=== PATIENT | female | born 1965 | race Caucasian/White ===

== ENCOUNTER 2017-11-07 10:08 | Day surgery (SDC) | payer BC ==
[~2017-11-07 10:08] MED LIST: Lactated Ringers 1,000 ML IV SCH; Midazolam 1 MG/ML 2 ML SDV ONE; Propofol 200 MG/20 ML SDV ONE; Sodium Chloride 0.9% 10 ML Syringe FLUSH PRN; Sodium Chloride 0.9% 2.5 ML Syringe FLUSH PRN; fentaNYL 100 MCG/2 ML SDV ONE
--- NOTE | 2017-11-07 11:02 | PCM.PREANE ---
Preanesthetic Assessment - Anesthesia/Transfusion/Family Hx Anesthesia History: Prior Anesthesia Without Reaction Family History of Anesthesia Reaction: No Transfusion History: No Prior Transfusion(s) - Review of Systems General: No Symptoms Pulmonary: No Symptoms Cardiovascular: No Symptoms Gastrointestinal: No Symptoms Neurological: No Symptoms Other: Reports: None - Physical Assessment NPO Status Date: 11/06/17 NPO Status Time: 21:00 O2 Sat by Pulse Oximetry: 99 Respiratory Rate: 16 Vital Signs: Last Vital Signs Temp 36.3 C 11/07/17 10:29 Pulse 70 11/07/17 10:29 Resp 16 11/07/17 10:29 BP 103/59 L 11/07/17 10:29 Pulse Ox 99 11/07/17 10:29 Height: 1.65 m Weight: 69.4 kg ASA Class: 2 Mental Status: Alert & Oriented x3 Airway Class: Mallampati = 1 Dentition: Reports: Normal Dentition ROM/Head Extension: Full Lungs: Clear to Auscultation, Normal Respiratory Effort Cardiovascular: Regular Rate, Regular Rhythm - Allergies Allergies/Adverse Reactions: Allergies Allergy/AdvReac Type Severity Reaction Status Date / Time Penicillins Allergy Cannot Verified 11/05/17 11:22 Remember - Anesthesia Plan Pre-Op Medication Ordered: None - Acknowledgements Anesthesia Type Planned: MAC Pt an Appropriate Candidate for the Planned Anesthesia: Yes Alternatives and Risks of Anesthesia Discussed w Pt/Guardian: Yes Pt/Guardian Understands and Agrees with Anesthesia Plan: Yes PreAnesthesia Questionnaire HEENT History: Reports: Allergic Rhinitis Musculoskeletal History: Reports: Fracture Other Musculoskeletal History: hx of fx right lower left/ ankle Neurological History: Reports: Other (See Below) Other Neuro History: hx of motion sickness Endocrine/Metabolic History: Reports: Hypothyroidism Hematologic History: Reports: B12 Deficiency - Past Surgical History Female Surgical History: Reports: Tubal Ligation, Other (See Below) Other Female Surgeries/Procedures: laser ablation of cervix - SUBSTANCE USE Smoking Status *Q: Never Smoker Recreational Drug Use History: No - HOME MEDS Home Medications: Home Meds Cetirizine HCl [Zyrtec] 10 mg PO DAILY 11/05/17 [History] Cyanocobalamin (Vitamin B-12) [B-12 Compliance] 1,000 mcg IM ASDIRECTED [History] Levothyroxine Sodium [Synthroid] 75 mcg PO DAILY 11/05/17 [History] Ofloxacin [Floxin 0.3% Otic Soln] 5 drop EARLF BID PRN 11/05/17 [History] - CURRENT (IN HOUSE) MEDS Current Meds: Current Medications Lactated Ringer's (Ringers, Lactated) 1,000 mls @ 125 mls/hr IV ASDIRECTED CARY Last Admin: 11/07/17 10:30 Dose: 125 mls/hr Sodium Chloride (Saline Flush) 10 ml FLUSH ASDIRECTED PRN PRN Reason: Keep Vein Open Sodium Chloride (Saline Flush) 2.5 ml FLUSH ASDIRECTED PRN PRN Reason: Keep Vein Open Sodium Chloride (Saline Flush) 10 ml FLUSH ASDIRECTED PRN PRN Reason: Keep Vein Open Sodium Chloride (Saline Flush) 2.5 ml FLUSH ASDIRECTED PRN PRN Reason: Keep Vein Open Discontinued Medications Fentanyl (Sublimaze) Confirm Administered Dose 100 mcg .ROUTE .STK-MED ONE Stop: 11/07/17 08:24 Midazolam HCl (Versed 1 Mg/Ml) Confirm Administered Dose 2 mg .ROUTE .STK-MED ONE Stop: 11/07/17 08:24 Propofol (Diprivan 20 Ml) Confirm Administered Dose 200 mg .ROUTE .STK-MED ONE Stop: 11/07/17 08:23
[2017-11-07] MEDS ORDERED: Propofol 200 MG/20 ML SDV ONE (11:33)
--- NOTE | 2017-11-07 11:53 | PCM.OPNOTE ---
- General Post-Op/Procedure Note Date of Surgery/Procedure: 11/07/17 Operative Procedure(s): Screening colonoscopy Findings: Mild diverticulosis Pre Op Diagnosis: Screening colonoscopy Post-Op Diagnosis: diverticulosis Anesthesia Technique: MAC Primary Surgeon: Regla Mueller Condition: Good
--- NOTE | 2017-11-07 12:20 | PCM.POSTAN ---
POST ANESTHESIA ASSESSMENT - MENTAL STATUS Mental Status: Alert, Oriented - RESPIRATORY Respiratory Status: Respiratory Rate WNL, Airway Patent, O2 Saturation Stable - CARDIOVASCULAR CV Status: Pulse Rate WNL, Blood Pressure Stable - GASTROINTESTINAL GI Status: No Symptoms - POST OP HYDRATION Hydration Status: Adequate & Stable
--- NOTE | 2017-11-07 12:21 | PCM48HPAN ---
Post Anesthesia Note - EVALUATION WITHIN 48HRS OF ANESTHETIC Vital Signs in Normal Range: Yes Patient Participated in Evaluation: Yes Respiratory Function Stable: Yes Airway Patent: Yes Cardiovascular Function Stable: Yes Hydration Status Stable: Yes Pain Control Satisfactory: Yes Nausea and Vomiting Control Satisfactory: Yes Mental Status Recovered: Yes
--- NOTE | 2017-11-07 16:52 | OR ---
SURGEON: JIMMY HALL MD DATE OF PROCEDURE: 11/07/2017 PREOPERATIVE DIAGNOSIS: Screening colonoscopy. POSTOPERATIVE DIAGNOSIS: Diverticulosis. PROCEDURE PERFORMED: Screening colonoscopy. ANESTHESIA: MAC. INSTRUMENT USED: Olympus colonoscope. EXTENT OF EXAM: To the cecum. PREPARATION: Good. LIMITATIONS: None. INDICATION FOR EXAMINATION: The patient is a 52-year-old female, who presents for first time screening colonoscopy. We discussed the procedure as well as expected perioperative course. We discussed the risks, including bleeding, infection, and/or perforation. The patient verbalized understanding and wished to proceed. PROCEDURE IN DETAIL: The patient was brought to the endoscopy suite and placed in a left lateral decubitus position. A time-out was completed verifying the patient's name, age, date of , allergies, and procedure to be performed. Monitored anesthesia care was induced and continuous oxygen was provided via nasal cannula throughout the procedure. After adequate sedation was achieved, a digital rectal exam was performed. This exam was within normal limits. A well lubricated colonoscope was inserted in the rectum and advanced under direct visualization to the level of cecum. This was somewhat difficult as the patient had a very redundant colon and significant looping during the case. A photograph was taken of the cecal cap as well as with the scope in the retroflexed position. The scope was then fully withdrawn while examining the color, texture, integrity, and anatomy of the mucosa from the cecum to the anal canal. The patient was noted to have very mild diverticulosis within the sigmoid colon. The scope was then brought into the rectum and retroflexed to allow visualization of the anal canal opening. This appeared normal, a photograph was taken. The scope was then straightened out and removed from the patient. The cecum to anus time was 7 minutes. The patient tolerated the procedure well and taken to PACU in stable condition. ENDOSCOPIC DIAGNOSIS: Diverticulosis. RECOMMENDATIONS: Follow up in clinic in 2 weeks. SIERRA BETH /[id number]
== END 2017-11-07 12:15 | disposition home or self-care (01) ==
LOC: MW.SDS 10:08
PROVIDERS: ATTEND Surgery
DX: Z12.11 Encounter for screening for malignant neoplasm of colon (principal); E03.9 Hypothyroidism, unspecified; H92.02 Otalgia, left ear; E53.8 Deficiency of other specified B group vitamins; K57.30 Diverticulosis of large intestine without perforation or abscess without bleeding; J32.9 Chronic sinusitis, unspecified; Z88.0 Allergy status to penicillin; Z79.899 Other long term (current) drug therapy; Z98.51 Tubal ligation status; Z98.890 Other specified postprocedural states
CPT/HCPCS: 45378; 81025; J2250; J3010; J7120; 00810; J2704

== ENCOUNTER 2018-01-25 15:54 | Day surgery (SDC) | payer BC ==
[2018-01-25] MEDS ORDERED: Sodium Chloride 0.9% 2.5 ML Syringe FLUSH PRN ×2 (16:19→19:40)
[2018-01-25] MEDS ORDERED: Sodium Chloride 0.9% 10 ML Syringe FLUSH PRN ×2 (16:19→19:40)
[2018-01-25] MEDS ORDERED: Morphine 2 MG/ML Syringe IVPUSH ONE ×2 (16:21→18:45)
[2018-01-25] MEDS ORDERED: Ondansetron 4 MG/2 ML SDV IVPUSH ONE (16:21)
--- NOTE | 2018-01-25 16:23 | EDM.PDOC ---
ED HPI GENERAL MEDICAL PROBLEM - General Chief Complaint: Abdominal Pain Stated Complaint: ABD PAIN Time Seen by Provider: 01/25/18 16:21 Source of Information: Reports: Patient History Limitations: Reports: No Limitations - History of Present Illness INITIAL COMMENTS - FREE TEXT/NARRATIVE: HISTORY AND PHYSICAL: []52-year-old female presenting with abdominal pain left upper quadrant History of Present Illness: []Patient states the pain started at 5:00 this morning and has continued. Patient has some nausea no vomiting no diarrhea She's not having menstrual cycle since October. Patient had crackers early this morning nothing to eat or drink since before noon. Review of Systems: As per history of present illness and below otherwise all systems reviewed and negative. Past medical history: As per history of present illness and as reviewed below otherwise noncontributory. Surgical history: As per history of present illness and as reviewed below otherwise noncontributory. Social history: No reported history of drug or alcohol abuse. Family history: As per history of present illness and as reviewed below otherwise noncontributory. Physical exam: Alert and oriented female answering questions appropriately in full sentences without any shortness of breath HEENT: Atraumatic, normocehpalic, pupils reactive, negative for conjunctival pallor or scleral icterus, mucous membranes moist, throat clear, neck supple, nontender, trachea midline. Lungs: Clear to auscultation, breath sounds equal bilaterally, chest non tender. Heart: S1S2, regular, negative for clicks, rubs, or JVD. Abdomen: Soft, nondistended, nontender. Negative for masses or hepatossplenmegaly. Negative for costovertebral tenderness. Pelvis: Stable nontender. Genitourinary: Deferred. Rectal: Deferred Extremities: Atraumatic, negative for cords or calf pain. Neurovascular unremarkable. Neuro: Awake, alert, oriented. Cranial nerves II through XII unremarkable. Cerebellum unremarkable. Motor and sensory unremarkable throughout. Exam nonfocal. Discussed patient with Dr. Caceres who will come in and see the patient. [address] Dr. Caceres is here to see the patient Diagnostics: [CBC CMP amylase and lipase Abdominal CT with contrast] Therapeutics: [IV normal saline Zofran Morphine] Impression: [Appendicitis] Plan: [Admit to Dr. Caceres] Definitive disposition and diagnosis as appropriate pending reevaluation and review of above. Onset: Today, Sudden Duration: Hour(s):, Getting Worse Location: Reports: Abdomen Quality: Reports: Throbbing Severity: Moderate Improves with: Reports: None Worsens with: Reports: None upper adomen Pain Score (Numeric/FACES): 8 - Related Data Allergies Allergy/AdvReac Type Severity Reaction Status Date / Time Penicillins Allergy Cannot Verified 01/25/18 16:02 Remember Home Meds: Home Meds Cetirizine HCl [Zyrtec] 10 mg PO DAILY 11/05/17 [History] Cyanocobalamin (Vitamin B-12) [B-12 Compliance] 1,000 mcg IM ASDIRECTED [History] Levothyroxine Sodium [Synthroid] 75 mcg PO DAILY 11/05/17 [History] Ofloxacin [Floxin 0.3% Otic Soln] 5 drop EARLF BID PRN 11/05/17 [History] Past Medical History - Past Health History Medical/Surgical History: Denies Medical/Surgical History HEENT History: Reports: Allergic Rhinitis Musculoskeletal History: Reports: Fracture Other Musculoskeletal History: hx of fx right lower left/ ankle Neurological History: Reports: Other (See Below) Other Neuro History: hx of motion sickness Endocrine/Metabolic History: Reports: Hypothyroidism Hematologic History: Reports: B12 Deficiency - Past Surgical History GI Surgical History: Reports: Colonoscopy Female Surgical History: Reports: Tubal Ligation, Other (See Below) Other Female Surgeries/Procedures: laser ablation of cervix Social & Family History - Family History Family Medical History: Noncontributory - Tobacco Use Smoking Status *Q: Never Smoker Second Hand Smoke Exposure: No - Caffeine Use Caffeine Use: Reports: Coffee - Recreational Drug Use Recreational Drug Use: No Drug Use in Last 12 Months: No ED ROS GENERAL - Review of Systems Review Of Systems: ROS reveals no pertinent complaints other than HPI. ED EXAM, GI/ABD - Physical Exam Exam: See Below (See dictation) Course - Vital Signs Last Recorded V/S: Last Vital Signs Temp 36.9 C 01/25/18 18:00 Pulse 69 01/25/18 18:59 Resp 16 01/25/18 18:59 BP 104/56 L 01/25/18 18:59 Pulse Ox 97 01/25/18 18:59 - Orders/Labs/Meds Orders: Active Orders 24 hr Category Date Time Status Patient Status [ADT] Routine ADT 01/25/18 19:40 Active Antiembolic Devices [RC] PER UNIT ROUTINE Care 01/25/18 19:41 Active Verify Patient Consent Obtain [RC] ASDIRECTED Care 01/25/18 19:40 Active Abdomen Pelvis w Cont [CT] Stat Exams 01/25/18 16:20 Taken Lactated Ringers [Ringers, Lactated] 1,000 ml Med 01/25/18 18:50 Active IV .BOLUS Lactated Ringers [Ringers, Lactated] 1,000 ml Med 01/25/18 19:45 Active IV ASDIRECTED Levofloxacin/Dextrose 5%-Water [Levaquin in D5W 750 MG/ Med 01/25/18 19:41 Active 150 ML] 750 mg Premix Bag 1 bag IV ONETIME Sodium Chloride 0.9% [Normal Saline] 500 ml Med 01/25/18 16:45 Active IV STAT Sodium Chloride 0.9% [Saline Flush] Med 01/25/18 16:19 Active 10 ml FLUSH ASDIRECTED PRN Sodium Chloride 0.9% [Saline Flush] Med 01/25/18 19:40 Active 10 ml FLUSH ASDIRECTED PRN Sodium Chloride 0.9% [Saline Flush] Med 01/25/18 16:19 Active 2.5 ml FLUSH ASDIRECTED PRN Sodium Chloride 0.9% [Saline Flush] Med 01/25/18 19:40 Active 2.5 ml FLUSH ASDIRECTED PRN metroNIDAZOLE/Normal Saline [Flagyl 500 MG in NS 100 ML Med 01/25/18 19:41 Active ] 500 mg Premix Bag 1 bag IV ONETIME Peripheral IV Insertion Adult [OM.PC] Routine Oth 01/25/18 19:40 Ordered Saline Lock Insert [OM.PC] Stat Oth 01/25/18 16:19 Ordered Sequential Compression Device [OM.PC] Routine Oth 01/25/18 19:40 Ordered Resuscitation Status Routine Resus Stat 01/25/18 19:40 Ordered Medication Orders Sodium Chloride (Normal Saline) 500 mls @ 999 mls/hr IV STAT CARY Last Admin: 01/25/18 16:52 Dose: 999 mls/hr Lactated Ringer's (Ringers, Lactated) 1,000 mls @ 999 mls/hr IV .BOLUS ONE Stop: 01/25/18 19:50 Last Admin: 01/25/18 18:54 Dose: 999 mls/hr Lactated Ringer's (Ringers, Lactated) 1,000 mls @ 125 mls/hr IV ASDIRECTED CARY Levofloxacin/Dextrose 750 mg/ (Premix) 150 mls @ 100 mls/hr IV ONETIME ONE Stop: 01/25/18 21:10 Metronidazole 500 mg/ Premix 100 mls @ 100 mls/hr IV ONETIME ONE Stop: 01/25/18 20:40 Last Admin: 01/25/18 19:46 Dose: 100 mls/hr Sodium Chloride (Saline Flush) 10 ml FLUSH ASDIRECTED PRN PRN Reason: Keep Vein Open Sodium Chloride (Saline Flush) 2.5 ml FLUSH ASDIRECTED PRN PRN Reason: Keep Vein Open Sodium Chloride (Saline Flush) 10 ml FLUSH ASDIRECTED PRN PRN Reason: Keep Vein Open Sodium Chloride (Saline Flush) 2.5 ml FLUSH ASDIRECTED PRN PRN Reason: Keep Vein Open Labs: Laboratory Tests 01/25/18 01/25/18 01/25/18 Range/Units 16:55 16:55 18:05 WBC 15.85 H (4.0-11.0) K/uL RBC 4.49 (4.30-5.90) M/uL Hgb 13.9 (12.0-16.0) g/dL Hct 41.0 (36.0-46.0) % MCV 91.3 (80.0-98.0) fL MCH 31.0 (27.0-32.0) pg MCHC 33.9 (31.0-37.0) g/dL RDW Std Deviation 43.8 (28.0-62.0) fl RDW Coeff of Pierre 13 (11.0-15.0) % Plt Count 303 (150-400) K/uL MPV 10.50 (7.40-12.00) fL Neut % (Auto) 92.6 H (48.0-80.0) % Lymph % (Auto) 4.0 L (16.0-40.0) % [place] % (Auto) 3.3 (0.0-15.0) % Eos % (Auto) 0.0 (0.0-7.0) % Baso % (Auto) 0.1 (0.0-1.5) % Neut # (Auto) 14.7 H (1.4-5.7) K/uL Lymph # (Auto) 0.6 (0.6-2.4) K/uL [place] # (Auto) 0.5 (0.0-0.8) K/uL Eos # (Auto) 0.0 (0.0-0.7) K/uL Baso # (Auto) 0.0 (0.0-0.1) K/uL Nucleated RBC % 0.0 /100WBC Nucleated RBCs # 0 K/uL Sodium 136 (136-146) mmol/L Potassium 4.2 (3.5-5.1) mmol/L Chloride 102 (98-110) mmol/L Carbon Dioxide 24 (21-31) mmol/L BUN 13 (6.0-23.0) mg/dL Creatinine 0.7 (0.6-1.5) mg/dL Est Cr Clr Drug Dosing 85.56 mL/min Estimated GFR (MDRD) > 60.0 ml/min Glucose 103 (60-110) mg/dL Calcium 9.5 (8.8-10.8) mg/dL Total Bilirubin 0.5 (0.1-1.5) mg/dL AST 16 (5-40) IU/L ALT 16 (8-54) IU/L Alkaline Phosphatase 61 (40-150) Total Protein 7.5 (6.0-8.0) g/dL Albumin 4.6 (3.5-5.0) g/dL Globulin 2.9 (2.0-3.5) g/dL Albumin/Globulin Ratio 1.6 (1.3-2.8) Amylase 53 (10-90) U/L Lipase 13 (7-80) U/L Urine Color YELLOW Urine Appearance SLT CLOUDY Urine pH 7.0 (5.0-8.0) Ur Specific [place] 1.020 (1.001-1.035) Urine Protein NEGATIVE (NEGATIVE) mg/dL Urine Glucose (UA) NEGATIVE (NEGATIVE) mg/dL Urine Ketones >=80 (NEGATIVE) mg/dL Urine Occult Blood NEGATIVE (NEGATIVE) Urine Nitrite NEGATIVE (NEGATIVE) Urine Bilirubin NEGATIVE (NEGATIVE) Urine Urobilinogen 0.2 (<2.0) EU/dL Ur Leukocyte Esterase NEGATIVE (NEGATIVE) Urine RBC 0-3 (0-2/HPF) Urine WBC 1-3 (0-5/HPF) Ur Epithelial Cells OCCASIONAL (NONE-FEW) Amorphous Sediment MODERATE (NEGATIVE) Urine Bacteria FEW (NEGATIVE) Urine Mucus RARE (NONE-MOD) Urine HCG, Qual (NEGATIVE) 01/25/18 Range/Units 18:05 WBC (4.0-11.0) K/uL RBC (4.30-5.90) M/uL Hgb (12.0-16.0) g/dL Hct (36.0-46.0) % MCV (80.0-98.0) fL MCH (27.0-32.0) pg MCHC (31.0-37.0) g/dL RDW Std Deviation (28.0-62.0) fl RDW Coeff of Pierre (11.0-15.0) % Plt Count (150-400) K/uL MPV (7.40-12.00) fL Neut % (Auto) (48.0-80.0) % Lymph % (Auto) (16.0-40.0) % [place] % (Auto) (0.0-15.0) % Eos % (Auto) (0.0-7.0) % Baso % (Auto) (0.0-1.5) % Neut # (Auto) (1.4-5.7) K/uL Lymph # (Auto) (0.6-2.4) K/uL [place] # (Auto) (0.0-0.8) K/uL Eos # (Auto) (0.0-0.7) K/uL Baso # (Auto) (0.0-0.1) K/uL Nucleated RBC % /100WBC Nucleated RBCs # K/uL Sodium (136-146) mmol/L Potassium (3.5-5.1) mmol/L Chloride (98-110) mmol/L Carbon Dioxide (21-31) mmol/L BUN (6.0-23.0) mg/dL Creatinine (0.6-1.5) mg/dL Est Cr Clr Drug Dosing mL/min Estimated GFR (MDRD) ml/min Glucose (60-110) mg/dL Calcium (8.8-10.8) mg/dL Total Bilirubin (0.1-1.5) mg/dL AST (5-40) IU/L ALT (8-54) IU/L Alkaline Phosphatase (40-150) Total Protein (6.0-8.0) g/dL Albumin (3.5-5.0) g/dL Globulin (2.0-3.5) g/dL Albumin/Globulin Ratio (1.3-2.8) Amylase (10-90) U/L Lipase (7-80) U/L Urine Color Urine Appearance Urine pH (5.0-8.0) Ur Specific [place] (1.001-1.035) Urine Protein (NEGATIVE) mg/dL Urine Glucose (UA) (NEGATIVE) mg/dL Urine Ketones (NEGATIVE) mg/dL Urine Occult Blood (NEGATIVE) Urine Nitrite (NEGATIVE) Urine Bilirubin (NEGATIVE) Urine Urobilinogen (<2.0) EU/dL Ur Leukocyte Esterase (NEGATIVE) Urine RBC (0-2/HPF) Urine WBC (0-5/HPF) Ur Epithelial Cells (NONE-FEW) Amorphous Sediment (NEGATIVE) Urine Bacteria (NEGATIVE) Urine Mucus (NONE-MOD) Urine HCG, Qual NEGATIVE (NEGATIVE) Meds: Medications Generic Name Dose Route Start Last Admin Trade Name Freq PRN Reason Stop Dose Admin Sodium Chloride 500 mls @ 999 mls/hr 01/25/18 16:45 01/25/18 16:52 Normal Saline IV 999 mls/hr STAT CARY Administration Lactated Ringer's 1,000 mls @ 999 mls/hr 01/25/18 18:50 01/25/18 18:54 Ringers, Lactated IV 01/25/18 19:50 999 mls/hr .BOLUS ONE Administration Lactated Ringer's 1,000 mls @ 125 mls/hr 01/25/18 19:45 Ringers, Lactated IV ASDIRECTED CARY Levofloxacin/Dextrose 750 mg/ 150 mls @ 100 mls/hr 01/25/18 19:41 Premix IV 01/25/18 21:10 ONETIME ONE Metronidazole 500 mg/ Premix 100 mls @ 100 mls/hr 01/25/18 19:41 01/25/18 19: 46 IV 01/25/18 20:40 100 mls/hr ONETIME ONE Administration Sodium Chloride 10 ml 01/25/18 16:19 Saline Flush FLUSH ASDIRECTED PRN Keep Vein Open Sodium Chloride 2.5 ml 01/25/18 16:19 Saline Flush FLUSH ASDIRECTED PRN Keep Vein Open Sodium Chloride 10 ml 01/25/18 19:40 Saline Flush FLUSH ASDIRECTED PRN Keep Vein Open Sodium Chloride 2.5 ml 01/25/18 19:40 Saline Flush FLUSH ASDIRECTED PRN Keep Vein Open Discontinued Medications Generic Name Dose Route Start Last Admin Trade Name Emiliano PRN Reason Stop Dose Admin Dexamethasone Confirm 01/25/18 19:34 Dexamethasone Administered 01/25/18 19:35 Dose 20 mg .ROUTE .STK-MED ONE Diphenhydramine HCl Confirm 01/25/18 19:34 Benadryl Administered 01/25/18 19:35 Dose 50 mg .ROUTE .STK-MED ONE Fentanyl Confirm 01/25/18 19:34 Sublimaze Administered 01/25/18 19:35 Dose 250 mcg .ROUTE .STK-MED ONE Hydromorphone HCl Confirm 01/25/18 19:35 Dilaudid Administered 01/25/18 19:36 Dose 2 mg .ROUTE .STK-MED ONE Iopamidol 86 ml 01/25/18 18:08 01/25/18 18:09 Isovue-370 (76%) IVPUSH 01/25/18 18:09 86 ml ONETIME STA Administration Midazolam HCl Confirm 01/25/18 19:34 Versed 1 Mg/Ml Administered 01/25/18 19:35 Dose 2 mg .ROUTE .STK-MED ONE Morphine Sulfate 2 mg 01/25/18 16:21 01/25/18 16:51 Morphine IVPUSH 01/25/18 16:22 2 mg ONETIME ONE Administration Morphine Sulfate 2 mg 01/25/18 18:45 01/25/18 18:54 Morphine IVPUSH 01/25/18 18:46 2 mg ONETIME ONE Administration Ondansetron HCl 4 mg 01/25/18 16:21 01/25/18 16:51 Zofran IVPUSH 01/25/18 16:22 4 mg ONETIME ONE Administration Ondansetron HCl Confirm 01/25/18 19:34 Zofran Administered 01/25/18 19:35 Dose 4 mg .ROUTE .STK-MED ONE Propofol Confirm 01/25/18 19:34 Diprivan 20 Ml Administered 01/25/18 19:35 Dose 200 mg .ROUTE .STK-MED ONE Rocuronium [place] Confirm 01/25/18 19:34 Zemuron Administered 01/25/18 19:35 Dose 100 mg .ROUTE .STK-MED ONE Succinylcholine Chloride Confirm 01/25/18 19:34 Succinylcholine In Ns Pf Administered 01/25/18 19:35 Dose 200 mg .ROUTE .STK-MED ONE Departure - Departure Time of Disposition: 19:49 Disposition: Refer to Observation Condition: Fair Clinical Impression: Retrocecal appendicitis - Discharge Information - My Orders Last 24 Hours: My Active Orders 01/25/18 16:19 Sodium Chloride 0.9% [Saline Flush] 10 ml FLUSH ASDIRECTED PRN Sodium Chloride 0.9% [Saline Flush] 2.5 ml FLUSH ASDIRECTED PRN Saline Lock Insert [OM.PC] Stat 01/25/18 16:20 Abdomen Pelvis w Cont [CT] Stat 01/25/18 16:45 Sodium Chloride 0.9% [Normal Saline] 500 ml IV STAT 01/25/18 18:50 Lactated Ringers [Ringers, Lactated] 1,000 ml IV .BOLUS - Assessment/Plan Last 24 Hours: My Active Orders 01/25/18 16:19 Sodium Chloride 0.9% [Saline Flush] 10 ml FLUSH ASDIRECTED PRN Sodium Chloride 0.9% [Saline Flush] 2.5 ml FLUSH ASDIRECTED PRN Saline Lock Insert [OM.PC] Stat 01/25/18 16:20 Abdomen Pelvis w Cont [CT] Stat 01/25/18 16:45 Sodium Chloride 0.9% [Normal Saline] 500 ml IV STAT 01/25/18 18:50 Lactated Ringers [Ringers, Lactated] 1,000 ml IV .BOLUS
[2018-01-25] MEDS ORDERED: Sodium Chloride 0.9% 500 ML IV SCH (16:45)
[2018-01-25 17:32] LABS: CHLORIDE,CL 102 mmol/L (98-110); SODIUM,NA 136 mmol/L (136-146)
[2018-01-25] MEDS ORDERED: Iopamidol 755 Mg/ML 100 ML Bottle IVPUSH STA (18:08)
[2018-01-25] MEDS ORDERED: Lactated Ringers 1,000 ML IV ONE (18:50)
[2018-01-25] MEDS ORDERED: Ondansetron 4 MG/2 ML SDV ONE (19:34)
[2018-01-25] MEDS ORDERED: fentaNYL 250 MCG/5 ML SDV ONE (19:34)
[2018-01-25] MEDS ORDERED: Rocuronium 10 MG/ML 10 ML Syringe ONE (19:34)
[2018-01-25] MEDS ORDERED: diphenhydrAMINE 50 MG/ML SDV ONE (19:34)
[2018-01-25] MEDS ORDERED: Propofol 200 MG/20 ML SDV ONE (19:34)
[2018-01-25] MEDS ORDERED: Succinylcholine/Normal Saline 200 MG/10 ML Syringe ONE (19:34)
[2018-01-25] MEDS ORDERED: Midazolam 1 MG/ML 2 ML SDV ONE (19:34)
[2018-01-25] MEDS ORDERED: Dexamethasone 4 MG/ML 5 ML MDV ONE (19:34)
[2018-01-25] MEDS ORDERED: HYDROmorphone 2 MG/ML SDV ONE (19:35)
[2018-01-25] MEDS ORDERED: metroNIDAZOLE/Normal Saline 500 MG in Premix Bag 1 BAG IV ONE (19:41)
[2018-01-25] MEDS ORDERED: Levofloxacin/Dextrose 5%-Water 750 MG in Premix Bag 1 BAG IV ONE (19:41)
[2018-01-25] MEDS ORDERED: Lactated Ringers 1,000 ML IV SCH (19:45)
--- NOTE | 2018-01-25 19:46 | PCM.HP ---
H&P History of Present Illness - General Date of Service: 01/25/18 Admit Problem/Dx: Admission Diagnosis/Problem Admission Diagnosis/Problem Appendicitis Source of Information: Patient History Limitations: Reports: No Limitations - History of Present Illness Initial Comments - Free Text/Narative: Patient is a 52 year old female who presents with generalized abdominal pain starting this morning around 5 am. This was associated with diaphoresis, nausea and vomiting. She has no appetite. The pain radiates to her back. She presented to the ER. She had a WBC of 15K with a left shift. A CT of the abdomen pelvis revealed a retrocecal and inflamed appendix. upper adomen Pain Score (Numeric/FACES): 8 - Related Data Allergies/Adverse Reactions: Allergies Allergy/AdvReac Type Severity Reaction Status Date / Time Penicillins Allergy Cannot Verified 01/25/18 16:02 Remember Home Medications: Home Meds Cetirizine HCl [Zyrtec] 10 mg PO DAILY 11/05/17 [History] Cyanocobalamin (Vitamin B-12) [B-12 Compliance] 1,000 mcg IM ASDIRECTED [History] Levothyroxine Sodium [Synthroid] 75 mcg PO DAILY 11/05/17 [History] Ofloxacin [Floxin 0.3% Otic Soln] 5 drop EARLF BID PRN 11/05/17 [History] Past Medical History - Past Health History Medical/Surgical History: Denies Medical/Surgical History HEENT History: Reports: Allergic Rhinitis Musculoskeletal History: Reports: Fracture Other Musculoskeletal History: hx of fx right lower left/ ankle Neurological History: Reports: Other (See Below) Other Neuro History: hx of motion sickness Endocrine/Metabolic History: Reports: Hypothyroidism Hematologic History: Reports: B12 Deficiency - Past Surgical History GI Surgical History: Reports: Colonoscopy Female Surgical History: Reports: Tubal Ligation, Other (See Below) Other Female Surgeries/Procedures: laser ablation of cervix Social & Family History - Family History Family Medical History: Noncontributory - Tobacco Use Smoking Status *Q: Never Smoker Second Hand Smoke Exposure: No - Caffeine Use Caffeine Use: Reports: Coffee - Recreational Drug Use Recreational Drug Use: No Drug Use in Last 12 Months: No H&P Review of Systems - Review of Systems: Review Of Systems: ROS reveals no pertinent complaints other than HPI. Exam - Exam Exam: See Below - Vital Signs Vital Signs: Last Vital Signs Temp 36.9 C 01/25/18 18:00 Pulse 69 01/25/18 18:59 Resp 16 01/25/18 18:59 BP 104/56 L 01/25/18 18:59 Pulse Ox 97 01/25/18 18:59 Weight: 71 kg - Exam General: Alert, Severe Distress HEENT: Conjunctiva Clear Neck: Supple Lungs: Clear to Auscultation, Normal Respiratory Effort Cardiovascular: Regular Rate, Regular Rhythm GI/Abdominal Exam: Soft, No Distention, No Mass, Guarding (in RLQ), Tender (RLQ) - Patient Data Lab Results Last 24 hrs: Laboratory Results - last 24 hr 01/25/18 01/25/18 01/25/18 Range/Units 16:55 16:55 18:05 WBC 15.85 H (4.0-11.0) K/uL RBC 4.49 (4.30-5.90) M/uL Hgb 13.9 (12.0-16.0) g/dL Hct 41.0 (36.0-46.0) % MCV 91.3 (80.0-98.0) fL MCH 31.0 (27.0-32.0) pg MCHC 33.9 (31.0-37.0) g/dL RDW Std Deviation 43.8 (28.0-62.0) fl RDW Coeff of Pierre 13 (11.0-15.0) % Plt Count 303 (150-400) K/uL MPV 10.50 (7.40-12.00) fL Neut % (Auto) 92.6 H (48.0-80.0) % Lymph % (Auto) 4.0 L (16.0-40.0) % [place] % (Auto) 3.3 (0.0-15.0) % Eos % (Auto) 0.0 (0.0-7.0) % Baso % (Auto) 0.1 (0.0-1.5) % Neut # (Auto) 14.7 H (1.4-5.7) K/uL Lymph # (Auto) 0.6 (0.6-2.4) K/uL [place] # (Auto) 0.5 (0.0-0.8) K/uL Eos # (Auto) 0.0 (0.0-0.7) K/uL Baso # (Auto) 0.0 (0.0-0.1) K/uL Nucleated RBC % 0.0 /100WBC Nucleated RBCs # 0 K/uL Sodium 136 (136-146) mmol/L Potassium 4.2 (3.5-5.1) mmol/L Chloride 102 (98-110) mmol/L Carbon Dioxide 24 (21-31) mmol/L BUN 13 (6.0-23.0) mg/dL Creatinine 0.7 (0.6-1.5) mg/dL Est Cr Clr Drug Dosing 85.56 mL/min Estimated GFR (MDRD) > 60.0 ml/min Glucose 103 (60-110) mg/dL Calcium 9.5 (8.8-10.8) mg/dL Total Bilirubin 0.5 (0.1-1.5) mg/dL AST 16 (5-40) IU/L ALT 16 (8-54) IU/L Alkaline Phosphatase 61 (40-150) Total Protein 7.5 (6.0-8.0) g/dL Albumin 4.6 (3.5-5.0) g/dL Globulin 2.9 (2.0-3.5) g/dL Albumin/Globulin Ratio 1.6 (1.3-2.8) Amylase 53 (10-90) U/L Lipase 13 (7-80) U/L Urine Color YELLOW Urine Appearance SLT CLOUDY Urine pH 7.0 (5.0-8.0) Ur Specific [place] 1.020 (1.001-1.035) Urine Protein NEGATIVE (NEGATIVE) mg/dL Urine Glucose (UA) NEGATIVE (NEGATIVE) mg/dL Urine Ketones >=80 (NEGATIVE) mg/dL Urine Occult Blood NEGATIVE (NEGATIVE) Urine Nitrite NEGATIVE (NEGATIVE) Urine Bilirubin NEGATIVE (NEGATIVE) Urine Urobilinogen 0.2 (<2.0) EU/dL Ur Leukocyte Esterase NEGATIVE (NEGATIVE) Urine RBC 0-3 (0-2/HPF) Urine WBC 1-3 (0-5/HPF) Ur Epithelial Cells OCCASIONAL (NONE-FEW) Amorphous Sediment MODERATE (NEGATIVE) Urine Bacteria FEW (NEGATIVE) Urine Mucus RARE (NONE-MOD) Urine HCG, Qual (NEGATIVE) 01/25/18 Range/Units 18:05 WBC (4.0-11.0) K/uL RBC (4.30-5.90) M/uL Hgb (12.0-16.0) g/dL Hct (36.0-46.0) % MCV (80.0-98.0) fL MCH (27.0-32.0) pg MCHC (31.0-37.0) g/dL RDW Std Deviation (28.0-62.0) fl RDW Coeff of Pierre (11.0-15.0) % Plt Count (150-400) K/uL MPV (7.40-12.00) fL Neut % (Auto) (48.0-80.0) % Lymph % (Auto) (16.0-40.0) % [place] % (Auto) (0.0-15.0) % Eos % (Auto) (0.0-7.0) % Baso % (Auto) (0.0-1.5) % Neut # (Auto) (1.4-5.7) K/uL Lymph # (Auto) (0.6-2.4) K/uL [place] # (Auto) (0.0-0.8) K/uL Eos # (Auto) (0.0-0.7) K/uL Baso # (Auto) (0.0-0.1) K/uL Nucleated RBC % /100WBC Nucleated RBCs # K/uL Sodium (136-146) mmol/L Potassium (3.5-5.1) mmol/L Chloride (98-110) mmol/L Carbon Dioxide (21-31) mmol/L BUN (6.0-23.0) mg/dL Creatinine (0.6-1.5) mg/dL Est Cr Clr Drug Dosing mL/min Estimated GFR (MDRD) ml/min Glucose (60-110) mg/dL Calcium (8.8-10.8) mg/dL Total Bilirubin (0.1-1.5) mg/dL AST (5-40) IU/L ALT (8-54) IU/L Alkaline Phosphatase (40-150) Total Protein (6.0-8.0) g/dL Albumin (3.5-5.0) g/dL Globulin (2.0-3.5) g/dL Albumin/Globulin Ratio (1.3-2.8) Amylase (10-90) U/L Lipase (7-80) U/L Urine Color Urine Appearance Urine pH (5.0-8.0) Ur Specific [place] (1.001-1.035) Urine Protein (NEGATIVE) mg/dL Urine Glucose (UA) (NEGATIVE) mg/dL Urine Ketones (NEGATIVE) mg/dL Urine Occult Blood (NEGATIVE) Urine Nitrite (NEGATIVE) Urine Bilirubin (NEGATIVE) Urine Urobilinogen (<2.0) EU/dL Ur Leukocyte Esterase (NEGATIVE) Urine RBC (0-2/HPF) Urine WBC (0-5/HPF) Ur Epithelial Cells (NONE-FEW) Amorphous Sediment (NEGATIVE) Urine Bacteria (NEGATIVE) Urine Mucus (NONE-MOD) Urine HCG, Qual NEGATIVE (NEGATIVE) Result Diagrams: 01/25/18 16:55 01/25/18 16:55 *Q Meaningful Use (ADM) - VTE *Q VTE Criteria *Q: - Stroke *Q Stroke Criteria *Q: - AMI *Q AMI Criteria *Q: - Problem List (1) Appendicitis SNOMED Code(s): 06542765 ICD Code: K37 - UNSPECIFIED APPENDICITIS Status: Acute Current Visit: Yes Problem List Initiated/Reviewed/Updated: Yes Orders Last 24hrs: Active Orders 24 hr Category Date Time Status Patient Status [ADT] Routine ADT 01/25/18 19:40 Ordered Antiembolic Devices [RC] PER UNIT ROUTINE Care 01/25/18 19:41 Ordered Verify Patient Consent Obtain [RC] ASDIRECTED Care 01/25/18 19:40 Ordered Abdomen Pelvis w Cont [CT] Stat Exams 01/25/18 16:20 Taken Lactated Ringers @ 125 MLS/HR(1000ml) Med 01/25/18 19:45 Ordered Lactated Ringers [Ringers, Lactated] 1,000 ml IV ASDIRECTED Lactated Ringers [Ringers, Lactated] 1,000 ml Med 01/25/18 18:50 Active IV .BOLUS Levofloxacin/Dextrose 5%-Water [Levaquin in D5W 750 MG/ Med 01/25/18 19:41 Ordered 150 ML] 750 mg Premix Bag 1 bag IV ONETIME Sodium Chloride 0.9% [Normal Saline] 500 ml Med 01/25/18 16:45 Active IV STAT Sodium Chloride 0.9% [Saline Flush] Med 01/25/18 16:19 Active 10 ml FLUSH ASDIRECTED PRN Sodium Chloride 0.9% [Saline Flush] Med 01/25/18 19:40 Ordered 10 ml FLUSH ASDIRECTED PRN Sodium Chloride 0.9% [Saline Flush] Med 01/25/18 16:19 Active 2.5 ml FLUSH ASDIRECTED PRN Sodium Chloride 0.9% [Saline Flush] Med 01/25/18 19:40 Ordered 2.5 ml FLUSH ASDIRECTED PRN metroNIDAZOLE/Normal Saline [Flagyl 500 MG in NS 100 ML Med 01/25/18 19:41 Ordered ] 500 mg Premix Bag 1 bag IV ONETIME Peripheral IV Insertion Adult [OM.PC] Routine Oth 01/25/18 19:40 Ordered Saline Lock Insert [OM.PC] Stat Oth 01/25/18 16:19 Ordered Sequential Compression Device [OM.PC] Routine Oth 01/25/18 19:40 Ordered Resuscitation Status Routine Resus Stat 01/25/18 19:40 Ordered Medication Orders Sodium Chloride (Normal Saline) 500 mls @ 999 mls/hr IV STAT CARY Last Admin: 01/25/18 16:52 Dose: 999 mls/hr Lactated Ringer's (Ringers, Lactated) 1,000 mls @ 999 mls/hr IV .BOLUS ONE Stop: 01/25/18 19:50 Last Admin: 01/25/18 18:54 Dose: 999 mls/hr Sodium Chloride (Saline Flush) 10 ml FLUSH ASDIRECTED PRN PRN Reason: Keep Vein Open Sodium Chloride (Saline Flush) 2.5 ml FLUSH ASDIRECTED PRN PRN Reason: Keep Vein Open Assessment/Plan Comment:: The patient has acute appendicitis. We discussed the pathophysiology of appendicitis. The treatment is surgical. We discussed the laparoscopic and open approaches. I will attempt this laparoscopically but should I be unable to perform this safely laparoscopically I will convert to open. We discussed the expected les-operative course and the risks including bleeding, infection or damage to surrounding structures. The patient verbalized understanding and wishes to proceed. She will be kept NPO, given levofloxacin and flagyl IV, and we will proceed to the OR. She will be admitted afterwards.
[2018-01-25] MEDS ORDERED: Lidocaine 2% 100 MG/5 ML Syringe ONE (20:12)
[2018-01-25] MEDS ORDERED: ePHEDrine 50 MG/ML SDV ONE (20:18)
[2018-01-25] MEDS ORDERED: Ketorolac 30 MG/ML SDV ONE (20:34)
--- NOTE | 2018-01-25 21:09 | PCM.OPNOTE ---
- General Post-Op/Procedure Note Date of Surgery/Procedure: 01/25/18 Operative Procedure(s): Laparoscopic appendectomy Findings: Inflamed and enlarged appendix. Not ruptured. Pre Op Diagnosis: Appendicitis Post-Op Diagnosis: Same Anesthesia Technique: General ET Tube Primary Surgeon: Regla Mueller Fluid Replacement, Intraop: 1,100 Output, Urine Amount: 45 EBL in mLs: 5 Condition: Good
[2018-01-25] MEDS ORDERED: diphenhydrAMINE 50 MG/ML SDV IVPUSH PRN (21:14)
[2018-01-25] MEDS ORDERED: Acetaminophen/HYDROcodone 325-5 MG Tab PO PRN (21:14)
[2018-01-25] MEDS ORDERED: HYDROmorphone 2 MG/ML SDV IVPUSH PRN (21:14)
[2018-01-25] MEDS ORDERED: Ondansetron 4 MG/2 ML SDV IVPUSH PRN (21:14)
--- NOTE | 2018-01-25 21:46 | PCM.POSTAN ---
POST ANESTHESIA ASSESSMENT - MENTAL STATUS Mental Status: Alert, Oriented - RESPIRATORY Respiratory Status: Respiratory Rate WNL, Airway Patent, O2 Saturation Stable - CARDIOVASCULAR CV Status: Pulse Rate WNL, Blood Pressure Stable - GASTROINTESTINAL GI Status: No Symptoms - PAIN Pain Score: 0 - POST OP HYDRATION Hydration Status: Adequate & Stable
[2018-01-25] MEDS ORDERED: Bupivacaine 0.5% 30 ML SDV ONE (21:50)
--- NOTE | 2018-01-26 01:21 | OR ---
SURGEON: JIMMY HALL MD DATE OF PROCEDURE: 01/25/2018 PREOPERATIVE DIAGNOSIS: Acute appendicitis. POSTOPERATIVE DIAGNOSIS: Acute appendicitis. PROCEDURE PERFORMED: Laparoscopic appendectomy. ANESTHESIA: General endotracheal anesthesia. FLUIDS: 1100 mL crystalloid. URINE OUTPUT: 45 mL. ESTIMATED BLOOD LOSS: 5 mL. FINDINGS: Acutely enlarged and inflamed retrocecal appendix, not perforated. COMPLICATIONS: None. INDICATIONS: The patient is a 52-year-old female, who presents with a 1-day history of generalized abdominal pain, associated with nausea and vomiting. She presented to the emergency room and was found to have a white count of 15,000 with a left shift. CT of the abdomen and pelvis revealed an enlarged inflamed retrocecal appendix with an intraluminal appendicolith. The patient and I discussed the pathophysiology of acute appendicitis. We discussed the need for a laparoscopic possible open appendectomy. I explained the procedure as well as the expected perioperative course. The patient understands that should I be unable to remove this laparoscopically, we will convert to open. The patient and I discussed the risks including bleeding, infection, or damage to surrounding structures. The patient verbalized understanding and wishes to proceed. PROCEDURE IN DETAIL: The patient was brought into the OR and placed on the OR table in supine position. A time-out was completed verifying the patient's name, age, date of , allergies, and procedure to be performed. General endotracheal anesthesia was induced. The patient's left arm was tucked at her side and a Sanders catheter placed. The abdomen was prepped and draped in the usual standard fashion. An area 3 fingerbreadths below the left subcostal margin along the midclavicular line was anesthetized with 0.5% Marcaine plain. A 1 cm incision was made using an #11 blade. A 5 mm optical trocar was used to enter the abdomen in the left upper quadrant. All layers of the abdominal wall were visualized upon entry. Once I had entered the abdomen, I insufflated the abdomen to a pressure of 13 mmHg. The area underneath my initial trocar site was inspected and there was no damage to surrounding structures. The patient was then placed into Trendelenburg position and airplaned slightly to the left. A 5 mm trocar was placed under direct visualization just lateral to the umbilicus and a 12 mm trocar was placed in the left lower quadrant in a similar fashion. I turned my attention to the right colon and followed the francia down to the cecum. The cecum was then grasped and rotated medially. I immediately noted an enlarged and inflamed appendix. This was grasped at the tip and rotated anteriorly to allow for better visualization. I made a window in the appendiceal mesentery at the base of the appendix. A 45 mm blue load of taj was then fired across the base of the appendix using an endo-stapling device. I then took a 45 mm granados load and stapled across the appendiceal mesentery close the to the appendicial border. The appendix was then placed in an EndoCatch bag and removed through the left lower quadrant port. I placed the port back in the abdomen and reinspected my operative site. The taj appeared to be intact and the field was hemostatic. A small amount of irrigation was used to irrigate out the pelvis in the operative site. This was suctioned out. I then closed the 12 mm port site with a Jean-Pierre-Yousuf device using 0 Vicryl suture. The 5 mm trocars were then removed under direct visualization and the abdomen allowed to desufflate. The 12 mm port site in the left lower quadrant was closed with interrupted 3-0 Vicryl sutures in the subcutaneous fat and a running 4-0 Monocryl suture in the subcuticular space. The 5 mm trocar sites were closed with interrupted 4-0 Monocryl. The patient tolerated the procedure well and was taken to PACU in stable condition. SIERRA BETH /[id number] PANFILO
--- NOTE | 2018-01-26 05:52 | PCM.SURGPN ---
- General Info Date of Service: 01/26/18 Date of Surgery/Procedure: 01/25/18 POD#: 1 Functional Status: Reports: Pain Controlled, Tolerating Diet, Ambulating, Urinating - Review of Systems General: Reports: No Symptoms Pulmonary: Reports: No Symptoms Cardiovascular: Reports: No Symptoms Gastrointestinal: Reports: No Symptoms Musculoskeletal: Reports: No Symptoms - Patient Data Vitals - Most Recent: Last Vital Signs Temp 36.9 C 01/26/18 04:51 Pulse 79 01/26/18 04:51 Resp 16 01/26/18 04:51 BP 91/54 L 01/26/18 04:51 Pulse Ox 98 01/26/18 04:51 Weight - Most Recent: 71 kg I&O - Last 24 Hours: Intake & Output 01/25/18 01/25/18 01/26/18 14:59 22:59 06:59 Intake Total 3400 1000 Output Total 90 1550 Balance 3310 -550 Lab Results Last 24 Hrs: Laboratory Results - last 24 hr 01/25/18 01/25/18 01/25/18 Range/Units 16:55 16:55 18:05 WBC 15.85 H (4.0-11.0) K/uL RBC 4.49 (4.30-5.90) M/uL Hgb 13.9 (12.0-16.0) g/dL Hct 41.0 (36.0-46.0) % MCV 91.3 (80.0-98.0) fL MCH 31.0 (27.0-32.0) pg MCHC 33.9 (31.0-37.0) g/dL RDW Std Deviation 43.8 (28.0-62.0) fl RDW Coeff of Pierre 13 (11.0-15.0) % Plt Count 303 (150-400) K/uL MPV 10.50 (7.40-12.00) fL Neut % (Auto) 92.6 H (48.0-80.0) % Lymph % (Auto) 4.0 L (16.0-40.0) % [place] % (Auto) 3.3 (0.0-15.0) % Eos % (Auto) 0.0 (0.0-7.0) % Baso % (Auto) 0.1 (0.0-1.5) % Neut # (Auto) 14.7 H (1.4-5.7) K/uL Lymph # (Auto) 0.6 (0.6-2.4) K/uL [place] # (Auto) 0.5 (0.0-0.8) K/uL Eos # (Auto) 0.0 (0.0-0.7) K/uL Baso # (Auto) 0.0 (0.0-0.1) K/uL Nucleated RBC % 0.0 /100WBC Nucleated RBCs # 0 K/uL Sodium 136 (136-146) mmol/L Potassium 4.2 (3.5-5.1) mmol/L Chloride 102 (98-110) mmol/L Carbon Dioxide 24 (21-31) mmol/L BUN 13 (6.0-23.0) mg/dL Creatinine 0.7 (0.6-1.5) mg/dL Est Cr Clr Drug Dosing 85.56 mL/min Estimated GFR (MDRD) > 60.0 ml/min Glucose 103 (60-110) mg/dL Calcium 9.5 (8.8-10.8) mg/dL Total Bilirubin 0.5 (0.1-1.5) mg/dL AST 16 (5-40) IU/L ALT 16 (8-54) IU/L Alkaline Phosphatase 61 (40-150) Total Protein 7.5 (6.0-8.0) g/dL Albumin 4.6 (3.5-5.0) g/dL Globulin 2.9 (2.0-3.5) g/dL Albumin/Globulin Ratio 1.6 (1.3-2.8) Amylase 53 (10-90) U/L Lipase 13 (7-80) U/L Urine Color YELLOW Urine Appearance SLT CLOUDY Urine pH 7.0 (5.0-8.0) Ur Specific [place] 1.020 (1.001-1.035) Urine Protein NEGATIVE (NEGATIVE) mg/dL Urine Glucose (UA) NEGATIVE (NEGATIVE) mg/dL Urine Ketones >=80 (NEGATIVE) mg/dL Urine Occult Blood NEGATIVE (NEGATIVE) Urine Nitrite NEGATIVE (NEGATIVE) Urine Bilirubin NEGATIVE (NEGATIVE) Urine Urobilinogen 0.2 (<2.0) EU/dL Ur Leukocyte Esterase NEGATIVE (NEGATIVE) Urine RBC 0-3 (0-2/HPF) Urine WBC 1-3 (0-5/HPF) Ur Epithelial Cells OCCASIONAL (NONE-FEW) Amorphous Sediment MODERATE (NEGATIVE) Urine Bacteria FEW (NEGATIVE) Urine Mucus RARE (NONE-MOD) Urine HCG, Qual (NEGATIVE) 01/25/18 Range/Units 18:05 WBC (4.0-11.0) K/uL RBC (4.30-5.90) M/uL Hgb (12.0-16.0) g/dL Hct (36.0-46.0) % MCV (80.0-98.0) fL MCH (27.0-32.0) pg MCHC (31.0-37.0) g/dL RDW Std Deviation (28.0-62.0) fl RDW Coeff of [place] (11.0-15.0) % Plt Count (150-400) K/uL MPV (7.40-12.00) fL Neut % (Auto) (48.0-80.0) % Lymph % (Auto) (16.0-40.0) % [place] % (Auto) (0.0-15.0) % Eos % (Auto) (0.0-7.0) % Baso % (Auto) (0.0-1.5) % Neut # (Auto) (1.4-5.7) K/uL Lymph # (Auto) (0.6-2.4) K/uL [place] # (Auto) (0.0-0.8) K/uL Eos # (Auto) (0.0-0.7) K/uL Baso # (Auto) (0.0-0.1) K/uL Nucleated RBC % /100WBC Nucleated RBCs # K/uL Sodium (136-146) mmol/L Potassium (3.5-5.1) mmol/L Chloride (98-110) mmol/L Carbon Dioxide (21-31) mmol/L BUN (6.0-23.0) mg/dL Creatinine (0.6-1.5) mg/dL Est Cr Clr Drug Dosing mL/min Estimated GFR (MDRD) ml/min Glucose (60-110) mg/dL Calcium (8.8-10.8) mg/dL Total Bilirubin (0.1-1.5) mg/dL AST (5-40) IU/L ALT (8-54) IU/L Alkaline Phosphatase (40-150) Total Protein (6.0-8.0) g/dL Albumin (3.5-5.0) g/dL Globulin (2.0-3.5) g/dL Albumin/Globulin Ratio (1.3-2.8) Amylase (10-90) U/L Lipase (7-80) U/L Urine Color Urine Appearance Urine pH (5.0-8.0) Ur Specific [place] (1.001-1.035) Urine Protein (NEGATIVE) mg/dL Urine Glucose (UA) (NEGATIVE) mg/dL Urine Ketones (NEGATIVE) mg/dL Urine Occult Blood (NEGATIVE) Urine Nitrite (NEGATIVE) Urine Bilirubin (NEGATIVE) Urine Urobilinogen (<2.0) EU/dL Ur Leukocyte Esterase (NEGATIVE) Urine RBC (0-2/HPF) Urine WBC (0-5/HPF) Ur Epithelial Cells (NONE-FEW) Amorphous Sediment (NEGATIVE) Urine Bacteria (NEGATIVE) Urine Mucus (NONE-MOD) Urine HCG, Qual NEGATIVE (NEGATIVE) Med Orders - Current: Current Medications Hydrocodone Bitart/Acetaminophen ([place] 325-5 Mg) 2 tab PO Q4H PRN PRN Reason: Pain (moderate 4-6) Cetirizine HCl (Zyrtec) 10 mg PO DAILY [facility] Diphenhydramine HCl (Benadryl) 50 mg IVPUSH Q4H PRN PRN Reason: Itching Hydromorphone HCl (Dilaudid) 0.5 mg IVPUSH Q1H PRN PRN Reason: Pain (severe 7-10) Sodium Chloride (Normal Saline) 500 mls @ 999 mls/hr IV STAT [facility] Last Admin: 01/25/18 16:52 Dose: 999 mls/hr Levothyroxine Sodium (Levothyroxine) 75 mcg PO ACBREAKFAST [facility] Ondansetron HCl (Zofran) 4 mg IVPUSH Q6H PRN PRN Reason: Nausea/Vomiting Polyethylene Glycol (Miralax) 17 gm PO DAILY PRN PRN Reason: Constipation Sodium Chloride (Saline Flush) 10 ml FLUSH ASDIRECTED PRN PRN Reason: Keep Vein Open Sodium Chloride (Saline Flush) 2.5 ml FLUSH ASDIRECTED PRN PRN Reason: Keep Vein Open Sodium Chloride (Saline Flush) 10 ml FLUSH ASDIRECTED PRN PRN Reason: Keep Vein Open Sodium Chloride (Saline Flush) 2.5 ml FLUSH ASDIRECTED PRN PRN Reason: Keep Vein Open Discontinued Medications Bupivacaine HCl (Marcaine 0.5%) Confirm Administered Dose 30 ml .ROUTE .STK-MED ONE Stop: 01/25/18 21:51 Dexamethasone (Dexamethasone) Confirm Administered Dose 20 mg .ROUTE .STK-MED ONE Stop: 01/25/18 19:35 Diphenhydramine HCl (Benadryl) Confirm Administered Dose 50 mg .ROUTE .STK-MED ONE Stop: 01/25/18 19:35 Ephedrine Sulfate (Ephedrine Sulfate) Confirm Administered Dose 50 mg .ROUTE .STK-MED ONE Stop: 01/25/18 20:19 Fentanyl (Sublimaze) Confirm Administered Dose 250 mcg .ROUTE .STK-MED ONE Stop: 01/25/18 19:35 Hydromorphone HCl (Dilaudid) Confirm Administered Dose 2 mg .ROUTE .STK-MED ONE Stop: 01/25/18 19:36 Lactated Ringer's (Ringers, Lactated) 1,000 mls @ 999 mls/hr IV .BOLUS ONE Stop: 01/25/18 19:50 Last Admin: 01/25/18 18:54 Dose: 999 mls/hr Lactated Ringer's (Ringers, Lactated) 1,000 mls @ 125 mls/hr IV ASDIRECTED [facility] Last Admin: 01/25/18 22:40 Dose: 125 mls/hr Levofloxacin/Dextrose 750 mg/ (Premix) 150 mls @ 100 mls/hr IV ONETIME ONE Stop: 01/25/18 21:10 Last Admin: 01/25/18 23:24 Dose: Not Given Metronidazole 500 mg/ Premix 100 mls @ 100 mls/hr IV ONETIME ONE Stop: 01/25/18 20:40 Last Admin: 01/25/18 19:46 Dose: 100 mls/hr Iopamidol (Isovue-370 (76%)) 86 ml IVPUSH ONETIME STA Stop: 01/25/18 18:09 Last Admin: 01/25/18 18:09 Dose: 86 ml Ketorolac Tromethamine (Toradol) Confirm Administered Dose 30 mg .ROUTE .STK- MED ONE Stop: 01/25/18 20:35 Lidocaine HCl (Xylocaine 2%) Confirm Administered Dose 100 mg .ROUTE .STK-MED ONE Stop: 01/25/18 20:13 Midazolam HCl (Versed 1 Mg/Ml) Confirm Administered Dose 2 mg .ROUTE .STK-MED ONE Stop: 01/25/18 19:35 Morphine Sulfate (Morphine) 2 mg IVPUSH ONETIME ONE Stop: 01/25/18 16:22 Last Admin: 01/25/18 16:51 Dose: 2 mg Morphine Sulfate (Morphine) 2 mg IVPUSH ONETIME ONE Stop: 01/25/18 18:46 Last Admin: 01/25/18 18:54 Dose: 2 mg Ondansetron HCl (Zofran) 4 mg IVPUSH ONETIME ONE Stop: 01/25/18 16:22 Last Admin: 01/25/18 16:51 Dose: 4 mg Ondansetron HCl (Zofran) Confirm Administered Dose 4 mg .ROUTE .STK-MED ONE Stop: 01/25/18 19:35 Propofol (Diprivan 20 Ml) Confirm Administered Dose 200 mg .ROUTE .STK-MED ONE Stop: 01/25/18 19:35 Rocuronium [place] (Zemuron) Confirm Administered Dose 100 mg .ROUTE .STK-MED ONE Stop: 01/25/18 19:35 Succinylcholine Chloride (Succinylcholine In Ns Pf) Confirm Administered Dose 200 mg .ROUTE .STK-MED ONE Stop: 01/25/18 19:35 - Exam Wound/Incisions: Healing Well, Dressing Dry and Intact, No Drainage General: Alert, Oriented Lungs: Clear to Auscultation Cardiovascular: Regular Rate GI/Abdominal Exam: Soft, Non-Tender, No Distention, No Mass Skin: Warm, Dry, Intact Neurological: No New Focal Deficit Psy/Mental Status: Alert - Problem List & Annotations (1) Appendicitis SNOMED Code(s): 78707005 Code(s): K37 - UNSPECIFIED APPENDICITIS Status: Acute Current Visit: Yes - Problem List Review Problem List Initiated/Reviewed/Updated: Yes - My Orders Last 24 Hours: Active Orders 24 hr Category Date Time Status Patient Status [ADT] Routine ADT 01/25/18 19:40 Active Antiembolic Devices [RC] PER UNIT ROUTINE Care 01/25/18 19:41 Active Intake and Output [RC] Q12H Care 01/25/18 21:15 Active Oxygen Therapy [RC] PRN Care 01/25/18 21:14 Active RT Incentive Spirometry [RC] ASDIRECTED Care 01/25/18 21:14 Active Up ad Ava [RC] ASDIRECTED Care 01/25/18 21:14 Active Verify Patient Consent Obtain [RC] ASDIRECTED Care 01/25/18 19:40 Active Vital Signs [RC] PER UNIT ROUTINE Care 01/25/18 21:14 Active Regular Diet [DIET] Diet 01/25/18 Breakfast Active Abdomen Pelvis w Cont [CT] Stat Exams 01/25/18 16:20 Taken Acetaminophen/HYDROcodone [[place] 325-5 MG] Med 01/25/18 21:14 Active 2 tab PO Q4H PRN Cetirizine [ZyrTEC] Med 01/26/18 09:00 Active 10 mg PO DAILY HYDROmorphone [Dilaudid] Med 01/25/18 21:14 Active 0.5 mg IVPUSH Q1H PRN Levothyroxine Med 01/26/18 07:30 Active 75 mcg PO ACBREAKFAST Ondansetron [Zofran] Med 01/25/18 21:14 Active 4 mg IVPUSH Q6H PRN Polyethylene Glycol 3350 [MiraLAX] Med 01/26/18 21:14 Active 17 gm PO DAILY PRN Sodium Chloride 0.9% [Normal Saline] 500 ml Med 01/25/18 16:45 Active IV STAT Sodium Chloride 0.9% [Saline Flush] Med 01/25/18 16:19 Active 10 ml FLUSH ASDIRECTED PRN Sodium Chloride 0.9% [Saline Flush] Med 01/25/18 19:40 Active 10 ml FLUSH ASDIRECTED PRN Sodium Chloride 0.9% [Saline Flush] Med 01/25/18 16:19 Active 2.5 ml FLUSH ASDIRECTED PRN Sodium Chloride 0.9% [Saline Flush] Med 01/25/18 19:40 Active 2.5 ml FLUSH ASDIRECTED PRN diphenhydrAMINE [Benadryl] Med 01/25/18 21:14 Active 50 mg IVPUSH Q4H PRN Peripheral IV Insertion Adult [OM.PC] Routine Oth 01/25/18 19:40 Ordered Saline Lock Insert [OM.PC] Stat Oth 01/25/18 16:19 Ordered Sequential Compression Device [OM.PC] Routine Oth 01/25/18 19:40 Ordered Resuscitation Status Routine Resus Stat 01/25/18 19:40 Ordered Medication Orders Hydrocodone Bitart/Acetaminophen ([place] 325-5 Mg) 2 tab PO Q4H PRN PRN Reason: Pain (moderate 4-6) Cetirizine HCl (Zyrtec) 10 mg PO DAILY [facility] Diphenhydramine HCl (Benadryl) 50 mg IVPUSH Q4H PRN PRN Reason: Itching Hydromorphone HCl (Dilaudid) 0.5 mg IVPUSH Q1H PRN PRN Reason: Pain (severe 7-10) Sodium Chloride (Normal Saline) 500 mls @ 999 mls/hr IV STAT [facility] Last Admin: 01/25/18 16:52 Dose: 999 mls/hr Levothyroxine Sodium (Levothyroxine) 75 mcg PO ACBREAKFAST [facility] Ondansetron HCl (Zofran) 4 mg IVPUSH Q6H PRN PRN Reason: Nausea/Vomiting Polyethylene Glycol (Miralax) 17 gm PO DAILY PRN PRN Reason: Constipation Sodium Chloride (Saline Flush) 10 ml FLUSH ASDIRECTED PRN PRN Reason: Keep Vein Open Sodium Chloride (Saline Flush) 2.5 ml FLUSH ASDIRECTED PRN PRN Reason: Keep Vein Open Sodium Chloride (Saline Flush) 10 ml FLUSH ASDIRECTED PRN PRN Reason: Keep Vein Open Sodium Chloride (Saline Flush) 2.5 ml FLUSH ASDIRECTED PRN PRN Reason: Keep Vein Open - Plan Plan (Free Text/Narrative):: Patient is doing well from her surgery. She has not had a meal yet. If she tolerates breakfast with no nausea, vomiting, or abdominal pain she can d/c home.
[2018-01-26] MEDS ORDERED: Levothyroxine 75 MCG Tab PO SCH (07:30)
--- NOTE | 2018-01-26 08:59 | PCM48HPAN ---
Post Anesthesia Note - EVALUATION WITHIN 48HRS OF ANESTHETIC Vital Signs in Normal Range: Yes Patient Participated in Evaluation: Yes Respiratory Function Stable: Yes Airway Patent: Yes Cardiovascular Function Stable: Yes Hydration Status Stable: Yes Pain Control Satisfactory: Yes Nausea and Vomiting Control Satisfactory: Yes Mental Status Recovered: Yes Resp Rate: 17
[2018-01-26] MEDS ORDERED: Cetirizine 10 MG Tab PO SCH (09:00)
[2018-01-26] MEDS ORDERED: Polyethylene Glycol 3350 Powder 17 GM Packet PO PRN (21:14)
--- NOTE | 2018-01-27 09:51 | CT ---
EXAM DATE: 01/25/18 PATIENT'S AGE: 52 Patient: JONE JARRELL Facility: [place], [place] Site . Site : [id number] Study: CT Abdomen/Pelvis W AZALIA [id number]/24/2018 6:14:46 PM Ordering Physician: Doctor Castelan Final Report: INDICATION: Abdominal pain with vomiting. Upper abdominal pain radiating to back and lower abdomen. TECHNIQUE: CT of abdomen and pelvis performed after IV injection of 86 mL of Isovue-370. FINDINGS: Changes of previous tubal ligation in the pelvis bilaterally. Mildly prominent lymph node between the right celiac axis and IVC on image 38 nonspecific. Small periumbilical fat containing anterior abdominal wall hernia. Small amount of fluid and soft tissue stranding in the anterior pelvis diffusely which trace amount of free fluid in the pelvis posteriorly. Moderate amount of stool in the colon. Moderately dilated retrocecal appendix with surrounding fluid and soft tissue stranding typical of acute appendicitis. 1 cm appendicolith at the origin of the appendix from the cecum. No abscess or free air. Minimal stranding in the mid and lower anterior abdominal fat likely related inflammation or edema. Remainder negative. IMPRESSION: 1. Typical findings of a acute retrocecal appendicitis. No abscess or free air. 2. Moderate amount of stool in the right colon. 3. Postprocedural changes of prior bilateral tubal ligation in the pelvis. 4. Small amounts of fluid and fat stranding in the anterior and posterior pelvis nonspecific could but could be in part related to the appendicitis. 5. Mildly enlarged lymph node in the right upper abdomen. Other findings as above. Please note that all CT scans at this facility use dose modulation, iterative reconstruction, and/or weight-based dosing when appropriate to reduce radiation dose to as low as reasonably achievable. Dictated by Juan Francisco Pozo MD @ Jan 25 2018 6:36PM (Electronic Signature) Report Signed by Proxy. PANFILO
== END 2018-01-26 10:52 | disposition home or self-care (01) ==
LOC: MW.ED 15:54 → MW.SDS 19:18 → MW.MS 22:22 → MW.SDS 01-26 10:52
PROVIDERS: ATTEND Surgery
DX: K35.80 Unspecified acute appendicitis (principal); E03.9 Hypothyroidism, unspecified; Z88.0 Allergy status to penicillin; Z79.899 Other long term (current) drug therapy; Z98.51 Tubal ligation status
CPT/HCPCS: 36415; 44970; 74177; 80053; 81001; 81025; 82150; 83690; 85025; 96361; 96365; 96375; 96376; 99285; A9270; C1776; J1100; J1200; J1885; J2250; J2270; J2405; J3010; J7040; J7120; Q9967; 00840; 88304; 99284; J1170; J2704